=== PATIENT | female | born 1970 | race Caucasian/White ===

== ENCOUNTER 2022-12-04 15:10 | Emergency (ER) | payer MEDICAID ==
[~2022-12-04] VITALS: Ht 165.1 cm; Wt 78.0 kg
[2022-12-04 15:11] VITALS: BP 150/96
== END 2022-12-04 18:34 | disposition left against medical advice (07) ==
LOC: ER 15:10
DX: Z53.21 Procedure and treatment not carried out due to patient leaving prior to being seen by health care provider (principal); I49.9 Cardiac arrhythmia, unspecified
CPT/HCPCS: 93005; 99281